=== PATIENT | female | born 1970 | race Caucasian/White ===

== ENCOUNTER 2020-01-23 09:38 | Outpatient (CLI) | payer OTHER, SELFPAY ==
--- NOTE | ~2020-01-23 | MM_ITS ---
EXAMINATION: MM screening west BI w darrell HISTORY: Screening mammogram TECHNIQUE: Craniocaudal and mediolateral oblique 3-D tomosynthesis images were obtained and synthetic 2-D images were generated. CAD analysis was submitted and interpreted. COMPARISON: Comparison to multiple prior studies sequentially, with oldest reviewed study dated 10/2017. BREAST PARENCHYMAL COMPOSITION: The breasts are heterogeneously dense, which may obscure small masses . FINDINGS: There is no evidence of suspicious mass, calcification, or architectural distortion to sugg est malignancy in either breast. There has been no suspicious interval change. IMPRESSION: 1. No mammographic evidence of malignancy. 2. Recommend routine screening mammography in one year. BI-RADS Category 1: Negative Reviewed, dictated and finalized at location A.
== END 2020-01-23 09:39 | disposition home or self-care (01) ==
LOC: ANHIMG 09:41
PROVIDERS: PCP Nurse Practitioner Adult Health; Visit Provider Obstetrics & Gynecology
DX: Z12.31 Encounter for screening mammogram for malignant neoplasm of breast (principal)
CPT/HCPCS: 77063; 77067

== ENCOUNTER 2020-02-05 08:40 | Outpatient (CLI) | payer OTHER, SELFPAY ==
[2020-02-05 09:22] LABS: Alanine Aminotransferase 15 U/L (4-35); Albumin Level 4.3 g/dL (3.5-5.1); Alkaline Phosphatase 41 U/L (38-126); Aspartate Amino Transferase 27 U/L (14-36); Bilirubin,Total 0.4 mg/dL (0.2-1.3); Blood Urea Nitrogen 17 mg/dL (7-17); Calcium 8.9 mg/dL (8.4-10.2); Carbon Dioxide 32 mmol/L (22-30); Chloride 103 mmol/L (98-107); Cholesterol 146 mg/dL (0-200); Estimated Glomerular Filt Rate 53; Glucose 81 mg/dL (65-105); HDL Direct 44 mg/dL; Potassium 3.4 mmol/L (3.4-5.0); Sodium 140 mmol/L (137-145); Triglycerides 60 mg/dL (<150)
[2020-02-05 09:33] LABS: LDL Cholesterol Direct 87 mg/dL
== END 2020-02-05 08:41 | disposition home or self-care (01) ==
PROVIDERS: PCP Nurse Practitioner Adult Health; Visit Provider Nurse Practitioner Adult Health
DX: E03.9 Hypothyroidism, unspecified (principal); E78.5 Hyperlipidemia, unspecified; I10 Essential (primary) hypertension
CPT/HCPCS: 36415; 80048; 80061; 80076; 84443

== ENCOUNTER 2020-02-27 11:06 | Outpatient (CLI) | payer OTHER, SELFPAY ==
[2020-02-27 12:25] LABS: Alanine Aminotransferase 16 U/L (4-35); Albumin Level 4.2 g/dL (3.5-5.1); Alkaline Phosphatase 42 U/L (38-126); Aspartate Amino Transferase 28 U/L (14-36); Bilirubin,Total 0.3 mg/dL (0.2-1.3); Blood Urea Nitrogen 20 mg/dL (7-17); Calcium 8.8 mg/dL (8.4-10.2); Carbon Dioxide 30 mmol/L (22-30); Chloride 104 mmol/L (98-107); Cholesterol 147 mg/dL (0-200); Estimated Glomerular Filt Rate 44; Glucose 90 mg/dL (65-105); HDL Direct 41 mg/dL; Potassium 3.3 mmol/L (3.4-5.0); Sodium 140 mmol/L (137-145); Triglycerides 61 mg/dL (<150)
[2020-02-27 12:36] LABS: LDL Cholesterol Direct 84 mg/dL
== END 2020-02-27 11:07 | disposition home or self-care (01) ==
PROVIDERS: Visit Provider Nurse Practitioner Adult Health
DX: E87.6 Hypokalemia (principal); E03.9 Hypothyroidism, unspecified; E78.5 Hyperlipidemia, unspecified; I10 Essential (primary) hypertension
CPT/HCPCS: 36415; 80048; 80061; 80076; 84443

== ENCOUNTER 2020-03-25 09:04 | Outpatient (CLI) | payer OTHER, SELFPAY ==
--- NOTE | 2020-03-25 09:05 | ECG_ITS ---
Measurements Intervals [place] Rate: 76 P: 39 [place]: 151 QRS: 69 QRSD: 102 T: 33 QT: 358 QTc: 403 Interpretive Statements SINUS RHYTHM BORDERLINE T WAVE ABNORMALITY- INFERIOR LEADS BORDERLINE ECG Electronically Signed On 03-25-2020 9:32:09 CDT by Pierce Gonzalez D.O.
== END 2020-03-25 09:05 | disposition home or self-care (01) ==
LOC: ANHSURGERY 09:05
PROVIDERS: Visit Provider Surgery Plastic and Reconstructive Surgery
DX: I10 Essential (primary) hypertension (principal); R94.31 Abnormal electrocardiogram [ECG] [EKG]
CPT/HCPCS: 93005

== ENCOUNTER 2020-03-30 02:00 | Outpatient (CLI) | payer OTHER, SELFPAY ==
[2020-03-30 21:41] LABS: SARS-CoV-2 RNA PCR Negative
== END 2020-03-30 02:01 | disposition home or self-care (01) ==
LOC: ANHCOVIDDT 02:01
PROVIDERS: Visit Provider Surgery Plastic and Reconstructive Surgery
DX: Z01.812 Encounter for preprocedural laboratory examination (principal); Z11.59 Encounter for screening for other viral diseases
CPT/HCPCS: 87635; C9803; U0003

== ENCOUNTER 2020-04-02 02:58 | Day surgery (SDC) | payer OTHER, SELFPAY ==
[2020-03-20 13:58] VITALS: BMI 25.4
[2020-04-02] VITALS (8 sets, daily range): BP systolic 112–149; BP diastolic 66–82; PULSE 70–81; RESP 10–18; TEMP 36.6–37.4; O2SAT 10–100
[2020-04-02] MEDS: LACTATED RINGERS 1,000 ML 30 ML IV CONT ×2 (10:00→13:46)
[2020-04-02 10:23] LABS: Urine Cotinine NEGATIVE
--- NOTE | 2020-04-02 10:25 | P.PNAN_ITS ---
Anes - Initial Pre Proc Eval Procedure: Operation Date: 04/02/20 11:30 Proposed Procedures p Bilateral Augmentation Mammoplasty - Rodrigo Mcmahon MD s Bilateral Breast Mastopexy - Rodrigo Mcmahon MD Date/Time: 04/02/20 10:25 Surgeon: Rodrigo Mcmahon MD Pre Op Diagnosis: Micromastia Patient Data Age: 49 Gender: F Height: 5 ft 3 in Weight: 63.5 kg Last Vital Signs Temp 99.3 F 04/02/20 09:53 Pulse 70 04/02/20 09:53 Resp 18 04/02/20 09:53 BP 128/81 04/02/20 09:53 Pulse Ox 100 04/02/20 09:53 Allergies Allergy/AdvReac Type Severity Reaction Status Date / Time No Known Allergies Allergy Verified 04/02/20 10:04 Home Medications Medication Instructions Recorded Confirmed Type amlodipine 5 mg tablet 5 mg PO DAILY 09/25/19 04/02/20 History levothyroxine 125 mcg tablet 125 mcg PO DAILY 09/25/19 04/02/20 History lisinopril 40 mg tablet 40 mg PO DAILY 09/25/19 04/02/20 History potassium chloride 10 mEq 10 meq PO BID 09/25/19 04/02/20 History tablet,extended release(part/cryst) trazodone 100 mg tablet 100 mg PO HS tablet 09/25/19 04/02/20 History cyclobenzaprine 10 mg tablet 10 mg PO TID PRN 09/26/19 04/02/20 History multivitamin 1 tablet PO DAILY 09/26/19 04/02/20 History propranolol 10 mg tablet 10 mg PO Q12H 09/26/19 04/02/20 History sumatriptan succinate 100 mg tablet 100 mg PO DIRECTED PRN 09/26/19 04/02/20 History topiramate 25 mg capsule,extended 25 mg PO HS 09/26/19 04/02/20 History release 24 hr vortioxetine 20 mg tablet 20 mg PO HS 09/26/19 04/02/20 History norethindrone (contraceptive) 0.35 0.35 mg PO DAILY #84 tablet 10/25/19 04/02/20 Rx mg tablet buspirone 10 mg tablet 10 mg PO BID 02/21/20 04/02/20 History carisoprodol 350 mg tablet 350 mg PO TID PRN #21 tablet 03/20/20 04/02/20 Rx famotidine 20 mg PO DAILY 03/20/20 04/02/20 History oxycodone-acetaminophen 5 mg-325 1 tablet PO Q6H PRN #15 tablet 03/20/20 04/02/20 Rx mg tablet Laboratory Tests 04/02/20 09:34 Cotinine Negative Patient hx anesthesia problems: none Family hx anesthesia problems: none [facility] Social History Social History Smoking status: Never smoker Second hand tobacco smoke exposure: No Alcohol intake: current Drinks per week: 1 Substance use: never Spiritual care concerns: No Anes - Eval Final PreProcedure Day of Procedure 04/02/20 10:25 Patient weight: normal Heart: regular rate and rhythm Lungs: clear to auscultation Airway: Mallampati scale class II Neurological: alert and oriented Last oral intake: >/= 8 hours ASA classification: II Emergent: no Anesthetic plan: proceed Anesthesia type and monitoring: general LMA and standard monitoring Informed Consent: The patient's anesthetic plan and its attendant risks and benefits were discussed with the patient/family/POA. Questions were solicited and answers provided to the satisfaction of the patient/family/POA.
--- NOTE | 2020-04-02 10:35 | WPDHPUPDATE1 ---
History and Physical Update Update Date/Time: 04/02/20 10:35 History and Physical has been reviewed, including an updated exam of the patient. There are NO changes in the patient's condition. Risks, benefits, and alternatives have been discussed and questions answered. Patient agrees to proceed with procedure.
--- NOTE | 2020-04-02 11:08 | P.OP_ITS ---
Procedure Note - Detailed Date of procedure: 04/02/20 Pre-op diagnosis: Micromastia Post-op diagnosis: same Procedure performed: Augmentation Mastopexy Description of procedure: She is here today for bilateral breast augmentation Mastopexy. Previously and again today the risks, benefits, alternatives were discussed in extensive detail. I wanted her to be very realistic about the risks involved as well as expectations. We discussed aftercare and what to monitor for. Made sure answered all of her questions to her satisfaction today and consent was obtained. Marked in the preoperative holding area with their verification. The patient was taken to the operating room placed supine on the operating table. Anesthesia was provided by anesthesiology. A surgical time-out was taken. We cleansed the skin and 1% lidocaine and 0.25% Marcaine with epinephrine was used anesthetize as a field block. She was prepped and draped in a standard sterile fashion. Tegaderm nipple Hutchison were placed. A 15 blade used to make an incision along the vertical incision. Dissection was continued until the chest wall as identified. I incised the pectoralis major along its inferior border and completely released the inferior border leaving the medial border intact. I created a subpectoral pocket in the appropriate dimensions based on our preoperative planning for the implant. I then copiously irrigated with saline solution and verified a strict hemostasis. Next the use a triple antibiotic and Betadine containing solution to irrigate the pocket. I washed my gloves with the triple antibiotic and Betadine solution. We washed the implant immediately upon opening it with this solution and only opened it when we needed it. I used implant funnel and no-touch technique. The implant was introduced into the pocket using the funnel. Having verified positioning of the implant this was closed using 2-0 Vicryl. I then tailor tacked the breast into place. Placed the patient in a sitting position. Marked out the nipple-areolar complex based on my intraoperative observations, measurements, and preoperative planning which was in full agreement. I marked out the nipple-areolar complex at 38 mm.She was placed supine. I de-epithelialized the superior pedicle. Removed the inferior skin as well as central keel of tissue. This was asymmetric as she had asymmetry prior to the procedure. I closed with 2-0 Vicryl followed by 3-0 Monocryl and running subcuticular 4-0 Monocryl. Tissue glue was placed. Fluffs and surgical bra were placed. Patient was awoke and taken to PACU without difficulty. All instrument sponge counts were correct at the end of the case. Anesthesia: GLMA Surgeon: Rodrigo Mcmahon MD Estimated blood loss (mL): 20 Drains: No Packing: No Pathology: none sent Complications: No immediate complications Condition: stable Disposition: PACU Findings: Bilateral inverted T mastopexy with superior pedicle. 415cc Silicone Natrelle Inspira SofttTouch Breast Implants Right: REF [facility]-415 SN [id number] Left: REF F-415 SN [id number]
[2020-04-02] MEDS: ceFAZolin 2 GM/D5W 50 ML 2 GM/50 ML BAG IVPB (11:16)
== END 2020-04-02 15:42 | disposition home or self-care (01) ==
PROVIDERS: Visit Provider Surgery Plastic and Reconstructive Surgery
PROC: (CPT 19325; principal; 2020-04-02 11:30)
PROC: (CPT 19316; 2020-04-02 11:30)
DX: Z41.1 Encounter for cosmetic surgery (principal); Z79.899 Other long term (current) drug therapy; I10 Essential (primary) hypertension; E07.9 Disorder of thyroid, unspecified; F41.8 Other specified anxiety disorders
CPT/HCPCS: 19325; 36415; 80307; A9270; J0690; J1100; J1580; J2250; J2370; J2405; J2704; J3010; J7120

== ENCOUNTER 2020-04-23 08:49 | Outpatient (CLI) | payer OTHER, SELFPAY ==
--- NOTE | ~2020-04-23 | CT_ITS ---
EXAMINATION: CT abdomen pelvis wo/w con EXAM DATE: 04/23/2020 09:36 INDICATION: Abnormal ultrasound. Hypokalemia. TECHNIQUE: Spiral CT of the abdomen without contrast followed by both abdomen and pelvis with 100 cc intravenous Omnipaque 350 (arterial through the abdomen and delayed through abdomen and pelvis). Axi al, coronal and sagittal images were reviewed. The dose-length product (DLP) for this examination wa s 596.28 mGy-cm. The exposure was tailored according to patient size (auto mA exposure control), and iterative reconstruction (ASIR) was used as additional dose reduction technique. Comparison is made to prior examination from 04/10/2016. FINDINGS: Precontrast scan demonstrates multiple right-sided calyceal stones, 2 of which measure over 1 cm in size. There is a stone in the right renal pelvis measuring 4 mm in size. There is mild to mo derate right-sided hydronephrosis. Findings were similar on CT from 2016, are chronic indicating that it could be from some chronic narrowing at the right ureteropelvic junction. No hydroureter or right ureteral stone. There is mild enhancement of the right renal urothelium, probably some inflammation, infection would typically have more pronounced enhancement and also involve the ureter. The right re nal parenchyma enhances normally, no evidence of pyelonephritis. The uterus is unremarkable. 3 cm l eft ovarian physiologic cyst. The bladder is unremarkable. There is no retroperitoneal or pelvic ly mphadenopathy. The liver, spleen, adrenal glands and pancreas are unremarkable. Gallbladder is unremarkable. No bi liary obstruction. The appendix is normal. The stomach and small bowel are unremarkable. There is moderate amount of colonic stool. No free intraperitoneal gas. The heart is normal in size. Ther e are no pericardial or pleural effusions. The lung bases are unremarkable. There are no osteoblast ic or osteolytic lesions identified. IMPRESSION: 1. Probable chronic narrowing of the right UPJ given the chronic nephrolithiasis, right renal pelvic calcification and mild to moderate right-sided hydronephrosis. 2. Mildly enhancing right renal pelvic urothelium probably mild inflammation. Infection typically peralta s more pronounced enhancement and should involve the ureter as well. Reviewed, dictated and finalized at location A. IMPRESSION: 1. Probable chronic narrowing of the right UPJ given the chronic nephrolithias is, right renal pelvic calcification and mild to moderate right-sided hydroneph rosis. 2. Mildly enhancing right renal pelvic urothelium probably mild inflammation. Infection typically has more pronounced enhancement and should involve the uret er as well.
[2020-04-23 09:18] LABS: Estimated Glomerular Filt Rate 53
== END 2020-04-23 08:50 | disposition home or self-care (01) ==
LOC: ANHIMG 08:52
PROVIDERS: Visit Provider Internal Medicine Nephrology
DX: E87.6 Hypokalemia (principal); N20.0 Calculus of kidney; E26.09 Other primary hyperaldosteronism
CPT/HCPCS: 36415; 74178; Q9967

== ENCOUNTER 2020-05-23 17:36 | Outpatient (NON) | payer OTHER, SELFPAY | END 2020-05-23 17:37 | PROVIDERS: Visit Provider Surgery Plastic and Reconstructive Surgery | DX: S21.002A Unspecified open wound of left breast, initial encounter (principal); X58.XXXA Exposure to other specified factors, initial encounter | CPT/HCPCS: 87070; 87075; 87205 ==

== ENCOUNTER 2020-07-02 12:12 | Outpatient (CLI) | payer OTHER, SELFPAY ==
--- NOTE | ~2020-07-02 | XR_ITS ---
EXAMINATION: XR abdomen/kub 1V INDICATION: Right nephrolithiasis TECHNIQUE: Supine views of the abdomen were obtained on 2 radiographs. COMPARISON: 04/23/2020 FINDINGS: There is a 7 mm stone of the right mid kidney. A 4 mm stone is seen which may be in the rig ht mid kidney or possibly the renal pelvis. Bowel contents obscure visualization of the right kidney lower pole however, previously identified stones are not definitely evident. There are phleboliths of the pelvis. No stones or stone fragments are identified along the expected course of the right urete r. The bowel gas pattern is normal. There are no dilated loops of bowel. IMPRESSION: 1. 4 mm stone projecting right mid kidney or renal pelvis. 2. Previously described right kidney lower pole stones not definitely seen. Reviewed, dictated and finalized at location A.
== END 2020-07-02 12:13 | disposition home or self-care (01) ==
PROVIDERS: Visit Provider Urology
DX: N20.0 Calculus of kidney (principal); R10.9 Unspecified abdominal pain
CPT/HCPCS: 74018

== ENCOUNTER 2020-07-09 13:17 | Outpatient (CLI) | payer OTHER, SELFPAY ==
[2020-07-09 13:55] LABS: Anion Gap 3 mmol/L (8-16); Blood Urea Nitrogen 18 mg/dL (7-17); Calcium 9.3 mg/dL (8.4-10.2); Carbon Dioxide 33 mmol/L (22-30); Chloride 105 mmol/L (98-107); Estimated Glomerular Filt Rate 53; Glucose 91 mg/dL (65-105); Potassium 3.6 mmol/L (3.4-5.0); Sodium 141 mmol/L (137-145)
[2020-07-09 13:59] LABS: INR 1.1; Prothrombin Time 13.9 Seconds (11.1-14.7)
== END 2020-07-09 13:18 | disposition home or self-care (01) ==
PROVIDERS: Anesthesiology; Visit Provider Urology
DX: E87.6 Hypokalemia (principal); N20.0 Calculus of kidney
CPT/HCPCS: 36415; 80048; 85610; 85730

== ENCOUNTER 2020-07-10 03:38 | Outpatient (CLI) | payer OTHER, SELFPAY ==
[2020-07-10 19:05] LABS: SARS-CoV-2 RNA PCR Negative
== END 2020-07-10 03:39 | disposition home or self-care (01) ==
LOC: ANHCOVIDDT 03:38
PROVIDERS: Visit Provider Urology
DX: Z01.812 Encounter for preprocedural laboratory examination (principal); Z20.828 Contact with and (suspected) exposure to other viral communicable diseases
CPT/HCPCS: 87635; C9803; U0003

== ENCOUNTER 2020-07-12 03:04 | Day surgery (SDC) | payer OTHER, SELFPAY ==
[2020-07-05 09:24] VITALS: BMI 25.7
[2020-07-12] VITALS (8 sets, daily range): BP systolic 113–130; BP diastolic 68–79; PULSE 76–88; RESP 9–20; TEMP 36.1–37.4; O2SAT 100
--- NOTE | ~2020-07-12 | XR_ITS ---
XR abdomen/kub 1V 07/12/2020 08:47 Indication: Preop lithotripsy Procedure: KUB Comparison: 07/02/2020 Findings: There are right renal stones. Bowel gas pattern nonobstructive. Moderate colonic fecal load ing. There are pelvic phleboliths. No acute osseous abnormality. Impression: 1: Right nephrolithiasis. Reviewed, dictated and finalized at location B. Impression: 1: Right nephrolithiasis.
--- NOTE | 2020-07-12 06:56 | WPDHPUPDATE1 ---
History and Physical Update Update Date/Time: 07/12/20 06:56 History and Physical has been reviewed, including an updated exam of the patient. There are NO changes in the patient's condition. Risks, benefits, and alternatives have been discussed and questions answered. Patient agrees to proceed with procedure.
--- NOTE | 2020-07-12 08:49 | SUR.PREOP ---
1189-SPOKE WITH DR. THAO REGARDING SERUM , DOES NOT NEED, URINE WILL SUFFICE.
[2020-07-12] MEDS: LACTATED RINGERS 1,000 ML 30 ML IV CONT (09:30)
--- NOTE | 2020-07-12 10:03 | WPDANESEPPF ---
Anes - Initial Pre Proc Eval Procedure: Operation Date: 07/12/20 10:30 Proposed Procedures p Right Extracorporeal Shock Wave Lithotripsy - Alejandro Urena MD Date/Time: 07/12/20 10:03 Surgeon: Alejandro Urena MD Pre Op Diagnosis: Right Kidney Stone Patient Data Age: 49 Gender: F Height: 5 ft 3 in Weight: 66.6 kg Last Vital Signs Temp 37.4 C 07/12/20 09:05 Pulse 84 07/12/20 09:05 Resp 20 07/12/20 09:05 BP 117/79 07/12/20 09:05 Pulse Ox 100 07/12/20 09:05 Allergies Allergy/AdvReac Type Severity Reaction Status Date / Time No Known Allergies Allergy Verified 07/12/20 08:54 Home Medications Medication Instructions Recorded Confirmed Type amlodipine 5 mg tablet 5 mg PO DAILY 09/25/19 07/12/20 History levothyroxine 125 mcg tablet 125 mcg PO DAILY 09/25/19 07/12/20 History lisinopril 40 mg tablet 40 mg PO DAILY 09/25/19 07/12/20 History potassium chloride 10 mEq 10 meq PO BID 09/25/19 07/12/20 History tablet,extended release(part/cryst) trazodone 100 mg tablet 100 mg PO HS tablet 09/25/19 07/12/20 History cyclobenzaprine 10 mg tablet 10 mg PO HS PRN 09/26/19 07/12/20 History multivitamin 1 tablet PO DAILY 09/26/19 07/12/20 History propranolol 10 mg tablet 10 mg PO Q12H 09/26/19 07/12/20 History sumatriptan succinate 100 mg tablet 100 mg PO DIRECTED PRN 09/26/19 07/12/20 History topiramate 25 mg capsule,extended 25 mg PO HS 09/26/19 07/12/20 History release 24 hr vortioxetine 20 mg tablet 20 mg PO HS 09/26/19 07/12/20 History norethindrone (contraceptive) 0.35 0.35 mg PO DAILY #84 tablet 10/25/19 07/12/20 Rx mg tablet buspirone 10 mg tablet 10 mg PO BID 02/21/20 07/12/20 History omeprazole 10 mg PO DAILY 07/05/20 07/12/20 History Patient hx anesthesia problems: none Family hx anesthesia problems: none PMFSH Past Medical History Medical History Anxiety Depression Hypertension Hypokalemia Migraines Thyroid disease Vaginal delivery Surgical History Surgical History History of endometrial ablation History of lithotripsy [place] teeth removed Family History Family History Mother Family history of malignant neoplasm of ovary Grandparent Carcinoma of colon Sibling Family history of multiple sclerosis Patient's brother is in good health Other Family history of malignant neoplasm of uterus Social History Social History Smoking status: Never smoker Second hand tobacco smoke exposure: No Alcohol intake: current Drinks per week: 0 Substance use: never Living arrangements: alone Spiritual care concerns: No Anes - Eval Final PreProcedure Day of Procedure 07/12/20 10:03 Patient weight: overweight Heart: regular rate and rhythm Lungs: clear to auscultation Airway: Mallampati scale class II Neurological: alert and oriented Last oral intake: >/= 8 hours ASA classification: II Emergent: no Anesthetic plan: proceed Anesthesia type and monitoring: general LMA and standard monitoring Informed Consent: The patient's anesthetic plan and its attendant risks and benefits were discussed with the patient/family/POA. Questions were solicited and answers provided to the satisfaction of the patient/family/POA.
[2020-07-12] MEDS: ceFAZolin 2 GM/D5W 50 ML 2 GM/50 ML BAG IVPB (10:25)
--- NOTE | 2020-07-12 11:03 | PM.PROC ---
Procedure Note - Detailed Date of procedure: 07/12/20 Pre-op diagnosis: Right Kidney Stone Post-op diagnosis: same Procedure performed: Right ESWL Description of procedure: The patient was brought to the operative suite where she was placed in the supine position on the [place] lithotripsy table. The focal point of the lithotripter was placed first at a 4-5mm calculus in the left renal pelvis. After 1000 shocks at a power of 4 that stone was no longer visible. An additional 1500 shocks were then delivered to the larger 6-7mm right lower pole stone at the same energy lever. . A total of 2500 shocks were delivered at a power setting of 4. There appeared to be good fragmentation of the stone. The patient tolerated the procedure well and was taken to the recovery room in good condition. Anesthesia: GLMA Surgeon: Alejandro Urena MD Drains: No Packing: No Pathology: none sent Complications: No immediate complications Condition: stable Disposition: PACU
[2020-07-12] MEDS: KETOROLAC 30 MG/ML VIAL (*BKC) IV PUSH (11:10)
== END 2020-07-12 13:11 | disposition home or self-care (01) ==
PROVIDERS: Visit Provider Urology
PROC: (CPT 50590; principal; 2020-07-12 10:30)
DX: N20.0 Calculus of kidney (principal); I10 Essential (primary) hypertension; F41.8 Other specified anxiety disorders; E07.9 Disorder of thyroid, unspecified
CPT/HCPCS: 50590; 74018; J0690; J1100; J1885; J2250; J2405; J2704; J3010; J7120

== ENCOUNTER 2020-07-26 13:20 | Outpatient (CLI) | payer OTHER, SELFPAY ==
--- NOTE | ~2020-07-26 | XR_ITS ---
EXAMINATION: XR abdomen/kub 1V INDICATION: Nephrolithiasis status post lithotripsy TECHNIQUE: Supine views of the abdomen were obtained on 2 radiographs. COMPARISON: 07/12/2020 FINDINGS: Previously described stones in the right kidney right renal pelvis are no longer evident, c onsistent with history of interval lithotripsy. No stones or stone fragments are identified along the expected course of the right ureter. A moderate volume of colonic stool is present. A phlebolith is noted in the left pelvis. There is mild osteoarthritis of the hips. IMPRESSION: 1. Previously described right nephrolithiasis no longer identified, consistent with interval lithotri psy. Reviewed, dictated and finalized at location A. [employer] IMPRESSION: 1. Previously described right nephrolithiasis no longer identified, consistent with interval lithotripsy.
== END 2020-07-26 13:21 | disposition home or self-care (01) ==
LOC: ANHIMG 13:23
PROVIDERS: Visit Provider Urology
DX: N20.0 Calculus of kidney (principal)
CPT/HCPCS: 74018

== ENCOUNTER 2021-02-05 13:35 | Outpatient (CLI) | payer OTHER, SELFPAY ==
--- NOTE | ~2021-02-05 | MM_ITS ---
EXAMINATION: MM scrn west implant BI w darrell HISTORY: Screening mammogram TECHNIQUE: Craniocaudal and mediolateral oblique 3-D tomosynthesis images with implant displacement a nd synthetic 2-D images were generated. Craniocaudal and mediolateral oblique views of the breasts wi thout implant displacement were obtained using full field digital mammography. CAD analysis was submi tted and interpreted. COMPARISON: Comparison to multiple prior studies sequentially, with oldest reviewed study dated 10/2017. BREAST PARENCHYMAL COMPOSITION: The breasts are heterogeneously dense, which may obscure small masses . FINDINGS: There is no evidence of suspicious mass, calcification, or architectural distortion to sugg est malignancy in either breast. There has been no suspicious interval change. IMPRESSION: 1. No mammographic evidence of malignancy. 2. Recommend routine screening mammography in one year. BI-RADS Category 1: Negative Reviewed, dictated and finalized at location A.
== END 2021-02-05 13:36 | disposition home or self-care (01) ==
LOC: ANHIMG 13:37
PROVIDERS: Visit Provider Obstetrics & Gynecology
DX: Z12.31 Encounter for screening mammogram for malignant neoplasm of breast (principal)
CPT/HCPCS: 77063; 77067

== ENCOUNTER → 2021-03-29 00:27 | Outpatient (CLI) | payer OTHER, SELFPAY ==
[2021-03-29 21:20] LABS: SARS-CoV-2 RNA PCR Negative
== END ==
PROVIDERS: Visit Provider Internal Medicine Gastroenterology
DX: Z01.812 Encounter for preprocedural laboratory examination (principal); Z20.822 Contact with and (suspected) exposure to COVID-19
CPT/HCPCS: C9803; U0003; U0005

== ENCOUNTER 2021-04-01 02:28 | Day surgery (SDC) | payer OTHER, SELFPAY ==
[2021-03-18 12:18] VITALS: BMI 26.5
[2021-04-01] MEDS: LACTATED RINGERS 1,000 ML 150 ML IV CONT (07:24)
--- NOTE | 2021-04-01 07:27 | WPDGICN ---
Assessment and Plan Assessment and plan (1) Encounter for screening colonoscopy: Code(s): Z12.11 - Encounter for screening for malignant neoplasm of colon Status: Acute Assessment and Plan: Patient presents today for screening colonoscopy appears be at average risk for colon polyps. GI Consult Note Consult date/time: 04/01/21 07:27 HPI: Yi Helms is a 50 year old female Presents for screening colonoscopy. Patient reports that her current weight appetite bowel movements are normal. She denies abdominal pain. She has had no bleeding. Her family history is noncontributory. Patient presents today for screening colonoscopy. Review of Systems Review of Systems: All systems reviewed & are unremarkable except as noted in HPI and below PMFSH Past Medical History Medical History (Updated 04/01/21 @ 07:28 by Arvind Hill MD) Admission for breast augmentation Anxiety Depression GERD (gastroesophageal reflux disease) Hypertension Hypokalemia Hypothyroidism Migraines Renal stones Vaginal delivery Surgical History Surgical History History of endometrial ablation History of lithotripsy [place] teeth removed Family History Family History Mother Family history of malignant neoplasm of ovary Grandparent Carcinoma of colon Sibling Family history of multiple sclerosis Patient's brother is in good health Other Family history of malignant neoplasm of uterus Social History Social History Smoking status: Never smoker Second hand tobacco smoke exposure: No Alcohol intake: current Drinks per week: 0 Substance use: never Substance use type: does not use Living arrangements: with family Spiritual care concerns: No Meds Home Medications and Allergies Home Medications Medication Instructions Recorded Confirmed Type amlodipine 5 mg tablet 5 mg PO DAILY 09/25/19 03/18/21 History levothyroxine 125 mcg tablet 125 mcg PO DAILY 09/25/19 03/18/21 History lisinopril 40 mg tablet 40 mg PO DAILY 09/25/19 03/18/21 History trazodone 100 mg tablet 100 mg PO HS tablet 09/25/19 03/18/21 History cyclobenzaprine 10 mg tablet 10 mg PO HS PRN 09/26/19 03/18/21 History multivitamin 1 tablet PO DAILY 09/26/19 03/18/21 History propranolol 10 mg tablet 10 mg PO Q12H 09/26/19 03/18/21 History sumatriptan succinate 100 mg tablet 100 mg PO DIRECTED PRN 09/26/19 03/18/21 History topiramate 25 mg capsule,extended 25 mg PO HS 09/26/19 03/18/21 History release 24 hr vortioxetine 20 mg tablet 20 mg PO HS 09/26/19 03/18/21 History buspirone 10 mg tablet 10 mg PO BID 02/21/20 03/18/21 History norethindrone (contraceptive) 0.35 0.35 mg PO DAILY #84 tablet 01/02/21 03/18/21 Rx mg tablet spironolactone 25 mg tablet 25 mg PO BID 01/02/21 03/18/21 History omeprazole 20 mg PO DAILY 03/18/21 03/18/21 History Allergies Allergy/AdvReac Type Severity Reaction Status Date / Time No Known Allergies Allergy Verified 03/18/21 12:18 Exam Narrative: Exam Narrative: Physical exam reveals patient be alert. Vital signs stable. HEENT exam is unremarkable. Patient is anicteric. Lungs are clear to auscultation and percussion. Heart is without murmur or extra sounds. Abdominal exam bowel sounds are present soft nontender with no hepatosplenomegaly. Digital external rectal exam is normal.
[2021-04-01 07:28] VITALS: BP 107/59; PULSE 78; RESP 16; TEMP 36.4; O2SAT 100; BMI 25.7
--- NOTE | 2021-04-01 08:07 | WPDANESEPPF ---
Anes - Initial Pre Proc Eval Procedure: Operation Date: 04/01/21 08:30 Proposed Procedures p Screening Colonoscopy - Arvind Hill MD Date/Time: 04/01/21 08:07 Surgeon: Arvind Hill MD Pre Op Diagnosis: neoplasm screening Patient Data Age: 50 Gender: F Height: 1.6 m Weight: 65.9 kg Last Vital Signs Temp 36.4 C L 04/01/21 07:28 Pulse 78 04/01/21 07:28 Resp 16 04/01/21 07:28 BP 107/59 L 04/01/21 07:28 Pulse Ox 100 04/01/21 07:28 Allergies Allergy/AdvReac Type Severity Reaction Status Date / Time No Known Allergies Allergy Verified 03/18/21 12:18 Home Medications Medication Instructions Recorded Confirmed Type amlodipine 5 mg tablet 5 mg PO DAILY 09/25/19 04/01/21 History levothyroxine 125 mcg tablet 125 mcg PO DAILY 09/25/19 04/01/21 History lisinopril 40 mg tablet 40 mg PO DAILY 09/25/19 04/01/21 History trazodone 100 mg tablet 100 mg PO HS tablet 09/25/19 04/01/21 History cyclobenzaprine 10 mg tablet 10 mg PO HS PRN 09/26/19 04/01/21 History multivitamin 1 tablet PO DAILY 09/26/19 04/01/21 History propranolol 10 mg tablet 10 mg PO Q12H 09/26/19 04/01/21 History sumatriptan succinate 100 mg tablet 100 mg PO DIRECTED PRN 09/26/19 04/01/21 History topiramate 25 mg capsule,extended 25 mg PO HS 09/26/19 04/01/21 History release 24 hr vortioxetine 20 mg tablet 20 mg PO HS 09/26/19 04/01/21 History buspirone 10 mg tablet 10 mg PO BID 02/21/20 04/01/21 History norethindrone (contraceptive) 0.35 0.35 mg PO DAILY #84 tablet 01/02/21 04/01/21 Rx mg tablet spironolactone 25 mg tablet 25 mg PO BID 01/02/21 04/01/21 History omeprazole 20 mg PO DAILY 03/18/21 04/01/21 History Patient hx anesthesia problems: none Family hx anesthesia problems: none PMFSH Past Medical History Medical History (Updated 04/01/21 @ 07:28 by Arvind Hill MD) Admission for breast augmentation Anxiety Depression GERD (gastroesophageal reflux disease) Hypertension Hypokalemia Hypothyroidism Migraines Renal stones Vaginal delivery Surgical History Surgical History History of endometrial ablation History of lithotripsy [place] teeth removed Family History Family History Mother Family history of malignant neoplasm of ovary Grandparent Carcinoma of colon Sibling Family history of multiple sclerosis Patient's brother is in good health Other Family history of malignant neoplasm of uterus Social History Social History Smoking status: Never smoker Second hand tobacco smoke exposure: No Alcohol intake: current Drinks per week: 0 Substance use: never Substance use type: does not use Living arrangements: with family Spiritual care concerns: No Anes - Eval Final PreProcedure Day of Procedure 04/01/21 08:07 Patient weight: overweight Heart: regular rate and rhythm Lungs: clear to auscultation and normal air movement Airway: Mallampati scale class II Neurological: alert and oriented Last oral intake: >/= 8 hours ASA classification: III Emergent: no Anesthetic plan: proceed Anesthesia type and monitoring: general GIVS and standard monitoring Informed Consent: The patient's anesthetic plan and its attendant risks and benefits were discussed with the patient/family/POA. Questions were solicited and answers provided to the satisfaction of the patient/family/POA.
[2021-04-01 08:54] VITALS: BP 110/67; PULSE 78; RESP 19; O2SAT 100
[2021-04-01 09:04] VITALS: BP 112/60; PULSE 72; RESP 18; O2SAT 99
[2021-04-01 09:14] VITALS: BP 118/79; PULSE 70; RESP 20; O2SAT 99
== END 2021-04-01 09:24 | disposition home or self-care (01) ==
PROVIDERS: Visit Provider Internal Medicine Gastroenterology
PROC: 0DJD8ZZ Inspection of Lower Intestinal Tract, Via Natural or Artificial Opening Endoscopic (ICD-10-PCS; CPT 45378; principal; 2021-04-01 08:30)
DX: Z12.11 Encounter for screening for malignant neoplasm of colon (principal); K64.8 Other hemorrhoids; I10 Essential (primary) hypertension; E03.9 Hypothyroidism, unspecified; K21.9 Gastro-esophageal reflux disease without esophagitis; F41.8 Other specified anxiety disorders
CPT/HCPCS: 45378; J2704; J7120

== ENCOUNTER → 2021-04-29 02:48 | Outpatient (CLI) | payer OTHER, SELFPAY ==
[2021-04-29 17:39] LABS: SARS-CoV-2 RNA PCR Positive
== END ==
PROVIDERS: Visit Provider Nurse Practitioner Adult Health
DX: U07.1 COVID-19 (principal)
CPT/HCPCS: C9803; U0003; U0005

== ENCOUNTER 2022-06-08 08:06 | Outpatient (CLI) | payer OTHER, SELFPAY ==
--- NOTE | ~2022-06-08 | MM_ITS ---
EXAMINATION: MM scrn west implant BI w darrell HISTORY: Screening mammogram TECHNIQUE: Craniocaudal and mediolateral oblique 3-D tomosynthesis images with implant displacement a nd synthetic 2-D images were generated. Craniocaudal and mediolateral oblique views of the breasts wi thout implant displacement were obtained using full field digital mammography. CAD analysis was submi tted and interpreted. COMPARISON: 02/05/2021, 01/23/2020, 10/03/2018 BREAST PARENCHYMAL COMPOSITION: The breasts are heterogeneously dense, which may obscure small masses . FINDINGS: There is no evidence of suspicious mass, calcification, or architectural distortion to sugg est malignancy in either breast. There has been no suspicious interval change. IMPRESSION: 1. No mammographic evidence of malignancy. 2. Recommend routine screening mammography in one year. BI-RADS Category 1: Negative Reviewed, dictated and finalized at location A.
== END 2022-06-08 08:07 | disposition home or self-care (01) ==
PROVIDERS: Visit Provider Obstetrics & Gynecology
DX: Z12.31 Encounter for screening mammogram for malignant neoplasm of breast (principal)
CPT/HCPCS: 77063; 77067

== ENCOUNTER 2022-06-16 09:54 | Outpatient (CLI) | payer OTHER, SELFPAY ==
--- NOTE | ~2022-06-16 | XR_ITS ---
EXAMINATION: XR abdomen/kub 1V INDICATION: Kidney stones TECHNIQUE: Supine views of the abdomen were obtained on 2 radiographs. COMPARISON: 07/26/2020 FINDINGS: No definite urolithiasis is identified. There is a moderate volume of colonic stool. 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 There is a phlebolith of the left pelvis. IMPRESSION: 1. No urolithiasis identified. Reviewed, dictated and finalized at location A.
== END 2022-06-16 09:55 | disposition home or self-care (01) ==
LOC: ANHIMG 09:57
PROVIDERS: Visit Provider Urology
DX: N20.0 Calculus of kidney (principal)
CPT/HCPCS: 74018

== ENCOUNTER 2022-12-28 10:36 | Outpatient (CLI) | payer OTHER, SELFPAY ==
--- NOTE | ~2022-12-28 | XR_ITS ---
XR abdomen/kub 1V 12/28/2022 10:52 INDICATION: Chronic kidney disease TECHNIQUE: KUB COMPARISON: Comparison to multiple prior studies sequentially, with oldest reviewed study dated 06/20. FINDINGS: Bowel gas pattern is normal. Moderate colonic fecal loading. There is no evidence of free a ir, mass, organomegaly, ascites or obstruction. No abnormal calculi are seen. The bones appear inta ct. Mild dextroscoliosis. IMPRESSION: 1: No acute abdominal abnormality identified. Reviewed, dictated and finalized at location B.
== END 2022-12-28 10:37 | disposition home or self-care (01) ==
PROVIDERS: PCP Nurse Practitioner; Visit Provider Internal Medicine Nephrology
DX: N18.31 Chronic kidney disease, stage 3a (principal); N20.0 Calculus of kidney
CPT/HCPCS: 74018

== ENCOUNTER 2023-06-25 07:54 | Outpatient (CLI) | payer OTHER, SELFPAY ==
[2023-06-25 14:02] LABS: Kit Draw Collected
== END 2023-06-25 07:55 | disposition home or self-care (01) ==
PROVIDERS: PCP Nurse Practitioner; Visit Provider Internal Medicine Nephrology
DX: N18.31 Chronic kidney disease, stage 3a (principal); N20.0 Calculus of kidney
CPT/HCPCS: 36415

== ENCOUNTER 2023-07-01 16:43 | Outpatient (CLI) | payer OTHER, SELFPAY ==
--- NOTE | ~2023-07-01 | MM_ITS ---
EXAMINATION: MM scrn west implant BI w darrell HISTORY: Screening mammogram TECHNIQUE: Craniocaudal and mediolateral oblique 3-D tomosynthesis images with implant displacement a nd synthetic 2-D images were generated. Craniocaudal and mediolateral oblique views of the breasts wi thout implant displacement were obtained using full field digital mammography. CAD analysis was submi tted and interpreted. COMPARISON: 06/08/2022, 02/05/2021, 01/23/2020 bilateral implant screening mammogram examinations BREAST PARENCHYMAL COMPOSITION: The breasts are heterogeneously dense, which may obscure small masses . FINDINGS: Status post bilateral augmentation mammoplasty. There is no evidence of suspicious mass, ca lcification, or architectural distortion to suggest malignancy in either breast. There has been no hol[place] spicious interval change. IMPRESSION: 1. No mammographic evidence of malignancy. 2. Recommend routine screening mammography in one year. BI-RADS Category 1: Negative Reviewed, dictated and finalized at location A.
== END 2023-07-01 16:44 | disposition home or self-care (01) ==
PROVIDERS: PCP Nurse Practitioner; Visit Provider Obstetrics & Gynecology
DX: Z12.31 Encounter for screening mammogram for malignant neoplasm of breast (principal)
CPT/HCPCS: 77063; 77067

== ENCOUNTER 2023-07-07 15:19 | Outpatient (CLI) | payer OTHER, SELFPAY ==
--- NOTE | ~2023-07-07 | XR_ITS ---
EXAMINATION: XR abdomen/kub 1V DATE: 07/07/2023 15:39 INDICATION: Kidney stones. TECHNIQUE: A supine view of the abdomen on 2 radiographs was obtained. COMPARISON: Abdomen radiographs 12/28/2022 FINDINGS: There are no dilated loops of bowel. There is a moderate volume of stool in the colon. The kidneys are obscured by bowel. There are phleboliths in left pelvis. IMPRESSION: 1. No visible urolithiasis. Reviewed, dictated and finalized at location E. IMPRESSION: 1. No visible urolithiasis.
== END 2023-07-07 15:20 | disposition home or self-care (01) ==
LOC: ANHIMG 15:26
PROVIDERS: PCP Nurse Practitioner; Visit Provider Urology
DX: N20.0 Calculus of kidney (principal)
CPT/HCPCS: 74018

== ENCOUNTER 2023-08-31 15:09 | Outpatient (CLI) | payer OTHER, SELFPAY | END 2023-08-31 15:10 | disposition home or self-care (01) | LOC: ANHGOSHLAB 15:11 | PROVIDERS: PCP Nurse Practitioner; Visit Provider Obstetrics & Gynecology | DX: N95.1 Menopausal and female climacteric states (principal) | CPT/HCPCS: 36415; 83001 ==

== ENCOUNTER 2023-12-28 13:16 | Outpatient (CLI) | payer OTHER, SELFPAY ==
[2023-12-29 12:18] LABS: Kit Draw Collected
== END 2023-12-28 13:17 | disposition home or self-care (01) ==
PROVIDERS: PCP Nurse Practitioner; Visit Provider Internal Medicine Nephrology
DX: N18.31 Chronic kidney disease, stage 3a (principal); N20.0 Calculus of kidney
CPT/HCPCS: 36415